=== PATIENT | female | born 1985 | race Caucasian/White ===

== ENCOUNTER 2016-12-24 07:18 | Inpatient (IN) | payer MEDICAID ==
[2016-12-24] MEDS: Lactated Ringers 1,000 ML IV SCH ×2 (11:00→12:50)
--- NOTE | 2016-12-24 11:59 | PN ---
DATE SEEN: 12/24/2016 SUBJECTIVE: This is a 31-year-old G5, para 4, comes in today 39 plus weeks, group B negative for induction. Lots of pelvic and back pain. OBJECTIVE: heart tones are in the 130s to 150s, reactive. Cervix is 2+, 50% effaced, -2. ASSESSMENT: Primipara multip, here for induction, group B negative. PLAN: AROM, clear fluid, vaginal delivery. /[id number] PE/MODL
[2016-12-24] MEDS ORDERED: Scopolamine 1.5 MG Transdermal Patch TOP ONE (12:05)
[2016-12-24] MEDS ORDERED: Scopolamine 1.5 MG Transdermal Patch ONE (12:14)
[2016-12-24] MEDS ORDERED: Morphine PF 10 MG/10 ML SDV ONE (12:25)
[2016-12-24] MEDS ORDERED: fentaNYL 100 MCG/2 ML SDV ITHECAL ONE (12:25)
[2016-12-24] MEDS ORDERED: ePHEDrine 50 MG/ML SDV IVPUSH PRN (13:27)
[2016-12-24] MEDS ORDERED: Naltrexone 50 MG Tab PO PRN (13:27)
[2016-12-24] MEDS ORDERED: Naloxone 0.4 MG/ML SDV IVPUSH PRN ×2 (13:27)
[2016-12-24] MEDS ORDERED: Promethazine 25 MG/ML SDV IV PRN (13:27)
[2016-12-24] MEDS ORDERED: Nalbuphine 10 MG/1 ML Vial IVPUSH PRN (13:27)
[2016-12-24] MEDS ORDERED: Metoclopramide 10 MG/2 ML SDV IVPUSH PRN (13:27)
[2016-12-24] MEDS ORDERED: Naltrexone 50 MG Tab PO SCH (13:27)
[2016-12-24] MEDS ORDERED: Naloxone 0.4 MG in Sodium Chloride 0.9% 100 ML IV PRN (13:27)
[2016-12-24] MEDS ORDERED: diphenhydrAMINE 50 MG/ML SDV IVPUSH PRN ×2 (13:27)
[2016-12-24] MEDS ORDERED: hydrOXYzine HCl 50 MG/ML SDV IM PRN ×2 (13:27)
[2016-12-24] MEDS ORDERED: Lactated Ringers 1,000 ML IV SCH (13:30)
[2016-12-24] MEDS ORDERED: Oxytocin/Normal Saline 10 UNIT/1,000 ML BAG IV ONE (15:00)
[2016-12-24] MEDS ORDERED: Oxytocin/Normal Saline 10 UNIT/1,000 ML BAG IV SCH (15:00)
[2016-12-24] MEDS ORDERED: fentaNYL 100 MCG/2 ML SDV ONE (16:32)
--- NOTE | 2016-12-24 18:15 | PCM.DEL ---
L & D Note - General Info Date of Service: 12/24/16 - Delivery Note Labor: spontaneous, augmented by oxytocin Delivery Outcome: Livebirth Presentation: OA Nuchal cord: present (X1. Broken when I was reducing it. At the child out immediately with no problems.) Prep: povidone-iodine (betadine Anesthesia Type: Intrathecal Anesthetic: lidocaine (xylocaine) 0.5% plain Local anesthetic volume: 4cc Amniotic Fluid Description: Clear Episiotomy Type: None Laceration: periurethral Suture type: vicryl Suture size: 4-0 Placenta: intact, spontaneous Cord: 3 vessels Resuscitation needed: No : bulb syringe - Patient Data Vitals - most recent: Last Vital Signs Temp 98.6 F 12/24/16 14:59 Pulse 75 12/24/16 15:00 Resp 16 12/24/16 15:00 BP 108/68 12/24/16 15:00 Pulse Ox 98 12/24/16 15:00 Weight - most recent: 183 lb I&O - last 24 hours: Intake & Output 12/24/16 12/24/16 12/24/16 06:59 14:59 22:59 Intake Total 200 Output Total 1125 Balance -925 Med Orders - Current: Current Medications Diphenhydramine HCl (Benadryl) 25 mg IVPUSH ASDIRECTED PRN PRN Reason: SEVERE EXTRAPYRAMIDAL SYMP Diphenhydramine HCl (Benadryl) 25 mg IVPUSH ASDIRECTED PRN PRN Reason: PRURITUS Ephedrine Sulfate (Ephedrine Sulfate) 5 mg IVPUSH ASDIRECTED PRN PRN Reason: HYPOTENSION Hydroxyzine HCl (Vistaril) 25 - 50 mg IM Q6H PRN PRN Reason: PRURITUS Hydroxyzine HCl (Vistaril) 25 - 50 mg IM Q4H PRN PRN Reason: N/V Lactated Ringer's (Ringers, Lactated) 1,000 mls @ 125 mls/hr IV ASDIRECTED CHAYO Last Admin: 12/24/16 12:50 Dose: 125 mls/hr Lactated Ringer's (Ringers, Lactated) mls @ 500 mls/hr IV ONETIME [facility] Naloxone HCl 0.4 mg/ Sodium (Chloride) 101 mls @ 25 mls/hr IV ASDIRECTED PRN PRN Reason: RESPIRATORY STATUS Oxytocin/Sodium Chloride (Pitocin In Ns 10 Units/1,000 Ml) 10 unit in 1,000 mls @ 12 mls/hr IV TITRATE CHAYO; 2 MUNITS/MIN PRN Reason: Protocol Last Titration: 12/24/16 16:45 Dose: 5 munits/min, 30 mls/hr Metoclopramide HCl (Reglan) 10 mg IVPUSH Q6H PRN PRN Reason: N/V Miscellaneous Information (Remove Patch) 1 ea TRDERM ASDIRECTED CH[facility]O Nalbuphine HCl (Nubain) 10 mg IVPUSH Q1H PRN PRN Reason: PRURITUS Naloxone HCl (Narcan) 0.1 mg IVPUSH ASDIRECTED PRN PRN Reason: RESPIRATROY STATUS Naloxone HCl (Narcan) 0.2 mg IVPUSH ASDIRECTED PRN PRN Reason: REVERSAL Naltrexone HCl (Naltrexone) 25 mg PO ONETIME [facility] Naltrexone HCl (Naltrexone) 25 mg PO ASDIRECTED PRN PRN Reason: REVERSAL Promethazine HCl (Phenergan) 0 mg IV Q4H PRN PRN Reason: N/V Discontinued Medications Fentanyl (Sublimaze) Confirm Administered Dose 100 mcg .ROUTE .STK-MED ONE Stop: 12/24/16 16:33 Scopolamine (Transderm-Scop) Confirm Administered Dose 1.5 mg .ROUTE .STK-MED ONE Stop: 12/24/16 12:15 Last Admin: 12/24/16 12:25 Dose: Not Given Scopolamine (Transderm-Scop) 1.5 mg TOP ONETIME ONE Stop: 12/24/16 12:06 Last Admin: 12/24/16 12:15 Dose: 1.5 mg - Problem List & Annotations (1) Vaginal delivery SNOMED Code(s): 490095773 Code(s): O80 - ENCOUNTER FOR FULL-TERM UNCOMPLICATED DELIVERY Status: Acute Current Visit: Yes - Problem List Review Problem List Initiated/Reviewed/Updated: Yes - My Orders Last 24 Hours: My Active Orders 12/24/16 07:25 Admission Status [Patient Status] [ADT] Routine 12/24/16 08:26 Admission Status [Patient Status] [ADT] Routine 12/24/16 11:15 Lactated Ringers [Ringers, Lactated] 1,000 ml IV ASDIRECTED 12/24/16 14:59 Communication Order [RC] ASDIRECTED Communication Order [RC] ASDIRECTED Communication Order [RC] ASDIRECTED Communication Order [RC] ASDIRECTED Notify Provider [RC] PRN Notify Provider [RC] STAT Vital Signs [RC] PER UNIT ROUTINE 12/24/16 15:00 Oxytocin/Normal Saline [Pitocin in NS 10 UNITS/1,000 ML] 10 unit in 1,000 ml IV TITRATE Medication Administration Instruction [OM.PC] Q30M - Plan Plan:: Routine care. See orders. Patient's asking to go home in the morning. Discussed in the a.m.
[2016-12-24] MEDS: Ibuprofen 800 MG Tab PO SCH (20:46)
[2016-12-24] MEDS: Acetaminophen/Codeine 300-30 MG Tab PO PRN (21:45)
[2016-12-25] MEDS: Acetaminophen/Codeine 300-30 MG Tab PO PRN (01:46)
--- NOTE | 2016-12-25 08:26 | PCM.PN ---
- General Info Date of Service: 12/25/16 Admission Dx/Problem (Free Text): Patient without complaints. She states the ibuprofen or Tylenol #3 does not help. Vaginal bleeding is slowing. She wants to go home. - Patient Data Vitals - most recent: Last Vital Signs Temp 97.1 F 12/25/16 06:26 Pulse 100 12/25/16 06:26 Resp 16 12/25/16 06:26 BP 95/53 L 12/25/16 06:26 Pulse Ox 100 12/25/16 06:26 Weight - most recent: 183 lb I&O - last 24 hours: Intake & Output 12/24/16 12/25/16 12/25/16 22:59 06:59 14:59 Intake Total 1250 Output Total 400 Balance 850 Lab Results last 24 hrs: Laboratory Results - last 24 hr 12/25/16 Range/Units 06:24 Hgb 11.5 (11.5-15.5) g/dL Hct 34.7 (30.0-51.3) % Med Orders - Current: Current Medications Acetaminophen/Codeine Phosphate (Tylenol With Codeine No.3 300mg/30mg) 1 tab PO Q4H PRN PRN Reason: Pain (moderate 4-6) Last Admin: 12/25/16 01:46 Dose: 1 tab Diphenhydramine HCl (Benadryl) 25 mg IVPUSH ASDIRECTED PRN PRN Reason: SEVERE EXTRAPYRAMIDAL SYMP Diphenhydramine HCl (Benadryl) 25 mg IVPUSH ASDIRECTED PRN PRN Reason: PRURITUS Ephedrine Sulfate (Ephedrine Sulfate) 5 mg IVPUSH ASDIRECTED PRN PRN Reason: HYPOTENSION Hydroxyzine HCl (Vistaril) 25 - 50 mg IM Q6H PRN PRN Reason: PRURITUS Hydroxyzine HCl (Vistaril) 25 - 50 mg IM Q4H PRN PRN Reason: N/V Lactated Ringer's (Ringers, Lactated) 1,000 mls @ 125 mls/hr IV ASDIRECTED CHAYO Last Admin: 12/24/16 12:50 Dose: 125 mls/hr Lactated Ringer's (Ringers, Lactated) mls @ 500 mls/hr IV ONETIME [facility] Naloxone HCl 0.4 mg/ Sodium (Chloride) 101 mls @ 25 mls/hr IV ASDIRECTED PRN PRN Reason: RESPIRATORY STATUS Oxytocin/Sodium Chloride (Pitocin In Ns 10 Units/1,000 Ml) 10 unit in 1,000 mls @ 12 mls/hr IV TITRATE CH[facility]O; 2 MUNITS/MIN PRN Reason: Protocol Last Titration: 12/24/16 16:45 Dose: 5 munits/min, 30 mls/hr Ibuprofen (Motrin) 800 mg PO TID [facility] Last Admin: 12/24/16 20:46 Dose: 800 mg Metoclopramide HCl (Reglan) 10 mg IVPUSH Q6H PRN PRN Reason: N/V Miscellaneous Information (Remove Patch) 1 ea TRDERM ASDIRECTED [facility] Nalbuphine HCl (Nubain) 10 mg IVPUSH Q1H PRN PRN Reason: PRURITUS Naloxone HCl (Narcan) 0.1 mg IVPUSH ASDIRECTED PRN PRN Reason: RESPIRATROY STATUS Naloxone HCl (Narcan) 0.2 mg IVPUSH ASDIRECTED PRN PRN Reason: REVERSAL Naltrexone HCl (Naltrexone) 25 mg PO ONETIME [facility] Last Admin: 12/24/16 18:25 Dose: 25 mg Naltrexone HCl (Naltrexone) 25 mg PO ASDIRECTED PRN PRN Reason: REVERSAL Promethazine HCl (Phenergan) 0 mg IV Q4H PRN PRN Reason: N/V Discontinued Medications Fentanyl (Sublimaze) Confirm Administered Dose 100 mcg .ROUTE .STK-MED ONE Stop: 12/24/16 16:33 Scopolamine (Transderm-Scop) Confirm Administered Dose 1.5 mg .ROUTE .STK-MED ONE Stop: 12/24/16 12:15 Last Admin: 12/24/16 12:25 Dose: Not Given Scopolamine (Transderm-Scop) 1.5 mg TOP ONETIME ONE Stop: 12/24/16 12:06 Last Admin: 12/24/16 12:15 Dose: 1.5 mg - Exam General: alert, oriented, cooperative Lungs: Normal respiratory effort Abdomen: other (Fundus firm) Extremities: no edema - Problem List & Annotations (1) Vaginal delivery SNOMED Code(s): 221415607 Code(s): O80 - ENCOUNTER FOR FULL-TERM UNCOMPLICATED DELIVERY Status: Acute Current Visit: Yes - Problem List Review Problem List Initiated/Reviewed/Updated: Yes - My Orders Last 24 Hours: My Active Orders 12/24/16 08:26 Admission Status [Patient Status] [ADT] Routine 12/24/16 11:15 Lactated Ringers [Ringers, Lactated] 1,000 ml IV ASDIRECTED 12/24/16 15:00 Oxytocin/Normal Saline [Pitocin in NS 10 UNITS/1,000 ML] 10 unit in 1,000 ml IV TITRATE Medication Administration Instruction [OM.PC] Q30M 12/24/16 18:15 Patient Status [ADT] Routine May Shower [RC] ASDIRECTED Up ad Lary [RC] ASDIRECTED Vital Signs [RC] PFP Acetaminophen/Codeine [Tylenol with Codeine No.3 300MG/30MG] 1 tab PO Q4H PRN Assess Lochia [WOMSER] Per Unit Routine Assess Uterine Involution [WOMSER] Per Unit Routine Resuscitation Status Routine 12/24/16 18:16 Ice Therapy [OM.PC] Per Unit Routine Perineal Care [OM.PC] Per Unit Routine Sitz Bath [OM.PC] Per Unit Routine 12/24/16 21:00 Ibuprofen [Motrin] 800 mg PO TID 12/24/16 Dinner Regular Diet [DIET] 12/25/16 08:24 Ready for Discharge [RC] PER UNIT ROUTINE - Plan Plan:: 1. Per patient request discharge to home. 2. Recheck in 6 weeks for care.
--- NOTE | 2016-12-25 08:28 | PCM.DCSUM1 ---
Discharge Summary - Hospital Course Free Text/Narrative:: Hospital course-patient delivered a healthy baby boy. Please see delivery note. Next day the patient elected to go home. The child was not eating the best we elected to keep the child for a while and observe [facility] was located at come back for the child. She states ibuprofen or Tylenol #3 did not help her pain. She denies much vaginal bleeding. Brief History: 31-year-old G5 para 439+ weeks group B negative came in for an elective induction - Discharge Data Discharge Date: 12/25/16 Discharge Disposition: Home, Self-Care 01 Condition: Good - Discharge Diagnosis/Problem(s) (1) Vaginal delivery SNOMED Code(s): 579163746 ICD Code: O80 - ENCOUNTER FOR FULL-TERM UNCOMPLICATED DELIVERY Status: Acute Current Visit: Yes - Patient Instructions Diet: Regular Diet as Tolerated Activity: As Tolerated Driving: May Drive Today Showering/Bathing: May Shower Notify Provider of: Fever, Increased Pain, Drainage Other/Special Instructions: 1. Recheck in 6 weeks for care. - Discharge Plan Prescriptions/Med Rec: Acetaminophen/Codeine [Tylenol with Codeine No.3 300MG/30MG] 1 tab PO Q4H PRN # 15 tablet PRN Reason: Pain Home Medications: Home Meds Acetaminophen/Codeine [Tylenol with Codeine No.3 300MG/30MG] 1 tab PO Q4H PRN # 15 tablet 12/25/16 [Rx] Patient Handouts: Shaken Baby Syndrome, Well Assurance Specialist - 1 Month Old, Infant Formula Feeding, Colic, [id number], Vaginal Delivery, Depression and Baby Blues, Pneumonia, Infant, Baby Safe Sleeping Information, How To Prepare Formula, CPR, Infant, Circumcision, , Care After, Easy-to- Read, Constipation, Infant, Apnea of Prematurity, Baby Care, [place] Resuscitation, SIDS Prevention Information, Baby Safe Sleeping Information, Easy -to-Read, Upper Respiratory Infection, Infant, Thrush, Infant, Rear-Facing -Only Child Safety Seat - Discharge Summary/Plan Comment DC Time >30 min.: No - Patient Data Vitals - Most Recent: Last Vital Signs Temp 97.1 F 12/25/16 06:26 Pulse 100 12/25/16 06:26 Resp 16 12/25/16 06:26 BP 95/53 L 12/25/16 06:26 Pulse Ox 100 12/25/16 06:26 Weight - Most Recent: 183 lb I&O - Last 24 hours: Intake & Output 12/24/16 12/25/16 12/25/16 22:59 06:59 14:59 Intake Total 1250 Output Total 400 Balance 850 Lab Results - Last 24 hrs: Laboratory Results - last 24 hr 12/25/16 Range/Units 06:24 Hgb 11.5 (11.5-15.5) g/dL Hct 34.7 (30.0-51.3) % Med Orders - Current: Current Medications Acetaminophen/Codeine Phosphate (Tylenol With Codeine No.3 300mg/30mg) 1 tab PO Q4H PRN PRN Reason: Pain (moderate 4-6) Last Admin: 12/25/16 01:46 Dose: 1 tab Diphenhydramine HCl (Benadryl) 25 mg IVPUSH ASDIRECTED PRN PRN Reason: SEVERE EXTRAPYRAMIDAL SYMP Diphenhydramine HCl (Benadryl) 25 mg IVPUSH ASDIRECTED PRN PRN Reason: PRURITUS Ephedrine Sulfate (Ephedrine Sulfate) 5 mg IVPUSH ASDIRECTED PRN PRN Reason: HYPOTENSION Hydroxyzine HCl (Vistaril) 25 - 50 mg IM Q6H PRN PRN Reason: PRURITUS Hydroxyzine HCl (Vistaril) 25 - 50 mg IM Q4H PRN PRN Reason: N/V Lactated Ringer's (Ringers, Lactated) 1,000 mls @ 125 mls/hr IV ASDIRECTED CHAYO Last Admin: 12/24/16 12:50 Dose: 125 mls/hr Lactated Ringer's (Ringers, Lactated) mls @ 500 mls/hr IV ONETIME [facility] Naloxone HCl 0.4 mg/ Sodium (Chloride) 101 mls @ 25 mls/hr IV ASDIRECTED PRN PRN Reason: RESPIRATORY STATUS Oxytocin/Sodium Chloride (Pitocin In Ns 10 Units/1,000 Ml) 10 unit in 1,000 mls @ 12 mls/hr IV TITRATE CH[facility]O; 2 MUNITS/MIN PRN Reason: Protocol Last Titration: 12/24/16 16:45 Dose: 5 munits/min, 30 mls/hr Ibuprofen (Motrin) 800 mg PO TID [facility] Last Admin: 12/24/16 20:46 Dose: 800 mg Metoclopramide HCl (Reglan) 10 mg IVPUSH Q6H PRN PRN Reason: N/V Miscellaneous Information (Remove Patch) 1 ea TRDERM ASDIRECTED [facility]O Nalbuphine HCl (Nubain) 10 mg IVPUSH Q1H PRN PRN Reason: PRURITUS Naloxone HCl (Narcan) 0.1 mg IVPUSH ASDIRECTED PRN PRN Reason: RESPIRATROY STATUS Naloxone HCl (Narcan) 0.2 mg IVPUSH ASDIRECTED PRN PRN Reason: REVERSAL Naltrexone HCl (Naltrexone) 25 mg PO ONETIME [facility] Last Admin: 12/24/16 18:25 Dose: 25 mg Naltrexone HCl (Naltrexone) 25 mg PO ASDIRECTED PRN PRN Reason: REVERSAL Promethazine HCl (Phenergan) 0 mg IV Q4H PRN PRN Reason: N/V Discontinued Medications Fentanyl (Sublimaze) Confirm Administered Dose 100 mcg .ROUTE .STK-MED ONE Stop: 12/24/16 16:33 Scopolamine (Transderm-Scop) Confirm Administered Dose 1.5 mg .ROUTE .STK-MED ONE Stop: 12/24/16 12:15 Last Admin: 12/24/16 12:25 Dose: Not Given Scopolamine (Transderm-Scop) 1.5 mg TOP ONETIME ONE Stop: 12/24/16 12:06 Last Admin: 12/24/16 12:15 Dose: 1.5 mg *Q Meaningful Use (DIS) - VTE *Q VTE Criteria *Q: - Stroke *Q Stroke Criteria *Q: - AMI *Q AMI Criteria *Q:
[2016-12-25] MEDS: Ibuprofen 800 MG Tab PO SCH (08:33)
[2016-12-25 10:18] VITALS: BP 89/62
== END 2016-12-25 09:35 | disposition home or self-care (01) | DRG 775 ==
LOC: UNDOADMOB 07:18 → FB.OB 07:18 → INTOOBSV 08:15 → FB.OB 08:15 → OBSVTOIN 08:15
PROVIDERS: ADMIT Family Medicine; ATTEND Family Medicine
PROC: 10E0XZZ Delivery of Products of Conception, External Approach (ICD-10-PCS; principal; 2016-12-24)
PROC: 10907ZC Drainage of Amniotic Fluid, Therapeutic from Products of Conception, Via Natural or Artificial Opening (ICD-10-PCS; 2016-12-24)
PROC: 3E033VJ Introduction of Other Hormone into Peripheral Vein, Percutaneous Approach (ICD-10-PCS; 2016-12-24)
DX: O69.81X0 Labor and delivery complicated by cord around neck, without compression, not applicable or unspecified (principal); Z3A.39 39 weeks gestation of pregnancy; Z37.0 Single live birth
CPT/HCPCS: 36415; 85014; 85018; A4217; A9270-GY; J2270; J2590; J3010; J7120